=== PATIENT | male | born 1950 | race Caucasian/White ===

== ENCOUNTER 2021-11-10 10:31 | Emergency (ER) | payer MEDICARE, OTHER ==
[2021-11-10] MEDS ORDERED: Sodium Chloride 0.9% 1,000 ML IV STA (11:15)
[2021-11-10] MEDS ORDERED: Sodium Chloride 0.9% 10 ML Syringe FLUSH PRN (11:15)
[2021-11-10 13:11] VITALS: BP 116/62; PULSE 68
== END 2021-11-10 13:05 | disposition home or self-care (01) ==
LOC: JD.ED 10:31 → SUPCPDRO 10:31 → JD.ED 13:05
DX: H60.501 Unspecified acute noninfective otitis externa, right ear (principal); J01.90 Acute sinusitis, unspecified; I10 Essential (primary) hypertension; Z79.82 Long term (current) use of aspirin; Z79.899 Other long term (current) drug therapy; Z95.5 Presence of coronary angioplasty implant and graft; Z79.02 Long term (current) use of antithrombotics/antiplatelets
CPT/HCPCS: 36415; 70450; 80053; 83735; 85025; 86140; 99284; J7030

== ENCOUNTER 2024-10-02 09:25 | Day surgery (SDC) | payer MEDICARE, OTHER ==
[~2024-10-02 09:25] MED LIST: Sodium Chloride 0.9% 10 ML Syringe FLUSH PRN; Sodium Chloride 0.9% 10 ML Syringe FLUSH SCH
[2024-10-02] MEDS: Lactated Ringers 1,000 ML IV SCH (09:55)
[2024-10-02] MEDS ORDERED: Propofol 200 MG/20 ML SDV ONE ×2 (11:01→11:08)
[2024-10-02] MEDS ORDERED: Dexamethasone 4 MG/ML 5 ML MDV ONE (11:01)
[2024-10-02] MEDS ORDERED: Ondansetron 4 MG/2 ML SDV ONE (11:01)
[2024-10-02] MEDS ORDERED: fentaNYL 250 MCG/5 ML SDV ONE (11:01)
[2024-10-02] MEDS ORDERED: Rocuronium 50 MG/5 ML Vial ONE (11:01)
[2024-10-02] MEDS ORDERED: Lidocaine 1% 5 ML VIAL ONE (11:01)
[2024-10-02] MEDS ORDERED: dexmedeTOMIDine HCl 200 MCG/2 ML SDV ONE (11:11)
[2024-10-02] MEDS ORDERED: ceFAZolin 2 GM Vial ONE (11:30)
[2024-10-02] MEDS ORDERED: HYDROmorphone 0.5 MG/0.5 ML Syringe ONE (11:35)
[2024-10-02] MEDS ORDERED: ePHEDrine 50 MG/ML SDV ONE (11:46)
[2024-10-02] MEDS: EPINEPHrine 1 MG/ML SDV ONE (11:51)
[2024-10-02] MEDS: Bupivacaine 0.5% 30 ML SDV ONE (11:51)
[2024-10-02] MEDS ORDERED: HYDROmorphone 0.5 MG/0.5 ML Syringe IVPUSH PRN (11:58)
[2024-10-02] MEDS ORDERED: Ondansetron 4 MG/2 ML SDV IVPUSH PRN (11:58)
[2024-10-02] MEDS ORDERED: fentaNYL 100 MCG/2 ML SDV IVPUSH PRN (11:58)
[2024-10-02] MEDS ORDERED: Lactated Ringers 1,000 ML ONE (12:00)
[2024-10-02] MEDS ORDERED: Sugammadex Sodium 200 MG/2 ML VIAL IV ONE (12:31)
[2024-10-02] MEDS ORDERED: oxyCODONE 5 MG Tab PO PRN (14:22)
[2024-10-02 15:11] VITALS: BP 128/78; PULSE 65
== END 2024-10-02 15:25 | disposition home or self-care (01) ==
LOC: JD.SDS 09:25
PROVIDERS: ATTEND Surgery
DX: K40.90 Unilateral inguinal hernia, without obstruction or gangrene, not specified as recurrent (principal); I10 Essential (primary) hypertension; Z87.891 Personal history of nicotine dependence
CPT/HCPCS: 00830; 88302; 99100; C1781; J0171; J0665; J0690; J1100; J2405; J2704; J3010; J3490; J7120